=== PATIENT | male | born 1955 | race Caucasian/White ===

== ENCOUNTER 2018-12-16 23:02 | Emergency (ER) | payer MEDICARE, BC ==
--- NOTE | 2018-12-16 23:13 | ED ---
Laceration/Wound HPI - HPI Summary HPI Summary: 63 yo male presents to [facility] with scalp laceration. He tells me that he was getting into his vehicle and struck the top of his head on the door frame. Sustained a laceration to the top of his head. No LOC. Currently has no headache , dizziness, numbness, tingling, weakness, vision changes. His BP is elevated today. He tells me that he has a low heart rate and is on BP medications, but a few months ago he was on more BP meds, but his BP at home was around 130/70 and he had a fainting episode - therefore his PCP cut back on his BP meds. He is unsure of the names of these. - History of Current Complaint Stated Complaint: LAC ON HEAD PER PT Time Seen by Provider: 12/16/18 23:13 Hx Obtained From: Patient Onset/Duration: Sudden Onset Onset Severity: Mild Current Severity: Mild Pain Intensity: 4 Pain Scale Used: 0-10 Numeric - Allergy/Home Medications Allergies/Adverse Reactions: Allergies Allergy/AdvReac Type Severity Reaction Status Date / Time codeine Allergy Stomach Verified 12/16/18 23:11 Cramps Home Medications: Home Medications Finasteride TAB* [Proscar TAB*] 5 mg PO DAILY 12/17/18 [History Confirmed ] PMH/Surg Hx/FS Hx/Imm Hx Endocrine/Hematology History: Denies: Hx Diabetes Cardiovascular History: Reports: Hx Hypertension Denies: Hx Congestive Heart Failure, Hx Coronary Artery Disease Respiratory History: Denies: Hx Asthma, Hx Chronic Obstructive Pulmonary Disease (COPD) GI History: Denies: Hx Gastroesophageal Reflux Disease History: Denies: Hx Acute Renal Failure Neurological History: Denies: Hx CVA, Hx Headaches, Hx Migraine, Hx Seizures Psychiatric History: Denies: Hx Anxiety, Hx Depression - Immunization History Immunizations Up to Date: Yes Infectious Disease History: No Infectious Disease History: Denies: Traveled Outside the [place] in Last 30 Days - Family History Known Family History: Positive: Hypertension - Social History Occupation: Employed Full-time Lives: With Family Alcohol Use: Occasionally Substance Use Type: Reports: None Smoking Status (MU): Former Smoker Review of Systems Constitutional: Negative Eyes: Negative ENT: Negative Cardiovascular: Negative Respiratory: Negative Gastrointestinal: Negative Positive: no symptoms reported Musculoskeletal: Negative Skin: Other - Scalp laceration Neurological: Negative Psychological: Normal All Other Systems Reviewed And Are Negative: Yes Physical Exam - Summary Physical Exam Summary: GENERAL: NAD. WDWN. No pain distress. SKIN: Occipital scalp with 2.0cm linear laceration 2mm width. Dried blood. HEENT: Head: Scalp lac as above. No raccoon eyes or battles sign. Eyes: PERRLA. NECK: Supple. Nontender. FROM CHEST: CTAB. No r/r/w. No accessory muscle use. Breathing comfortably and in no distress. CV: RRR. Without m/r/g. Pulses intact. Brisk cap refill. MSK: FROM in B/L UEs and LEs with symmetric strength. NEURO: A&Ox3. 3 word recall, remote, recent memory, ability to follow 2-step directions, and attention intact. CN: II: Peripheral morrison intact. Vision normal. III, IV, : EOMI. No nystagmus. PERRLA. V: Sensations intact and symmetric. Opens mouth and clenches teeth. VII: No facial asymmetry. Forehead wrinkles. Grins, shuts eyes, frowns, puffs cheeks. VIII: Hearing intact to finger rub. IX, X: Swallows and coughs. Uvula midline. XI: Shrugs shoulders. Turns head against resistance. XII: No tongue deviation [id number] are intact. Gait with normal base. Romberg: maintains balance, no pronator drift. Normal speech. No facial drooping. PSYCH: Age appropriate behavior. Triage Information Reviewed: Yes Vital Signs On Initial Exam: Initial Vitals Temp Pulse Resp BP Pulse Ox 98.1 F 51 16 178/119 99 12/16/18 23:09 12/16/18 23:09 12/16/18 23:09 12/16/18 23:09 12/16/18 23:09 Vital Signs Reviewed: Yes Procedures - Laceration/Wound Repair 1 Location: head Description: Linear Length, Depth and Shape: 2.0 Irrigated w/ Saline (ccs): 100 Closure: Ar #__ - 7 Diagnostics - Vital Signs Vital Signs (72 hours) 12/16/18 12/17/18 12/17/18 23:09 00:00 00:08 Temperature 98.1 F Pulse Rate 51 56 63 Respiratory 16 Rate Blood Pressure 178/119 165/105 (mmHg) O2 Sat by Pulse 99 98 98 Oximetry 12/17/18 12/17/18 12/17/18 00:31 00:56 01:29 Temperature Pulse Rate 64 Respiratory Rate Blood Pressure 150/122 143/100 (mmHg) O2 Sat by Pulse 98 Oximetry 12/17/18 12/17/18 01:50 01:56 Temperature Pulse Rate 70 62 Respiratory Rate Blood Pressure 157/103 152/97 (mmHg) O2 Sat by Pulse 97 97 Oximetry - Laboratory Lab Statement: Any lab studies that have been ordered have been reviewed, and results considered in the medical decision making process. - CT brain CT Interpretation Completed By: Radiologist Summary of CT Findings: IMPRESSION: Superficial parietal laceration with no acute intracranial abnormality. Laceration Repair Course/Dx - Course Course Of Treatment: The wound was irrigated with NS. 7 ar were applied to the scalp with good approximation. Pt tolerated well. His BP is elevated today. He was given clonidine 0.1mg po with good reduction of his BP and he remained asymptomatic. Advised to rest and apply ice to his head to reduce pain. Advised to f/u with his PCP in 10 days for removal of ar and within that time for a recheck of his BP. - Clinical Impression Provider Diagnoses: Head injury, Scalp laceration, HTN (hypertension) Discharge - Sign-Out/Discharge Documenting (check all that apply): Patient Departure Patient Received Moderate/Deep Sedation with Procedure: No - Discharge Plan Condition: Stable Disposition: HOME Patient Education Materials: Chronic Hypertension (ED), Staple Care (ED) Referrals: [facility] [Outside] - 2 Days Additional Instructions: If you develop a fever, shortness of breath, chest pain, new or worsening symptoms - please call your PCP or go to the ED immediately. Your blood pressure was high at todays visit. Please see your primary provider within 4 weeks for recheck and re-evaluation. 1) Apply ice to your head to reduce pain and swelling 2) Please return in 10 days to have your ar removed - Billing Disposition and Condition Condition: STABLE Disposition: Home
[2018-12-16] MEDS ORDERED: Tetan/Diph/Pertus SYR(Tdap)* 0.5 ML SYR(BOOSTRIX) use SYR IM ONE (23:14)
[2018-12-16] MEDS ORDERED: cloNIDine TAB* 0.1 MG PO ONE (23:28)
== END 2018-12-17 02:25 | disposition home or self-care (01) ==
LOC: ED 23:02
DX: S01.01XA Laceration without foreign body of scalp, initial encounter (principal); W22.09XA Striking against other stationary object, initial encounter; Y92.9 Unspecified place or not applicable; I10 Essential (primary) hypertension; Z87.891 Personal history of nicotine dependence; Z79.899 Other long term (current) drug therapy
CPT/HCPCS: 12001; 70450; 90471; 90715; 99283; A9270-GY